=== PATIENT | male | born 1985 | race Caucasian/White ===

== ENCOUNTER 2024-05-04 15:44 | Emergency (ER) | payer OTHER ==
[2024-05-04] MEDS ORDERED: levETIRAcetam 500 MG (5 mL) VIAL ONE (16:11)
[2024-05-04] MEDS ORDERED: levETIRAcetam 500 MG TAB ONE (16:11)
[2024-05-04] MEDS ORDERED: Bacitracin 1 PK ONE (16:12)
== END 2024-05-04 17:48 ==
LOC: NAV ERS 15:44 → EEVIPCON 15:44 → NAV ERS 17:48
DX: R56.9 Unspecified convulsions (principal); S01.01XA Laceration without foreign body of scalp, initial encounter; Z91.148 Patient's other noncompliance with medication regimen for other reason; Z79.899 Other long term (current) drug therapy; X58.XXXA Exposure to other specified factors, initial encounter; Y92.149 Unspecified place in prison as the place of occurrence of the external cause
CPT/HCPCS: 12001; 96374; J1953